=== PATIENT | female | born 1975 ===

== ENCOUNTER 2019-12-18 01:59 | Emergency (ER) | payer BC ==
[2019-12-18] MEDS ORDERED: Ketorolac 30 MG/ML SDV IM ONE (02:36)
--- NOTE | 2019-12-18 02:42 | EDM.PDOC ---
ED HPI GENERAL MEDICAL PROBLEM - General Chief Complaint: Genitourinary Problem Stated Complaint: HAS A UTI, BODY ACHES NOW Time Seen by Provider: 12/18/19 02:40 Source of Information: Reports: Patient History Limitations: Reports: No Limitations - History of Present Illness INITIAL COMMENTS - FREE TEXT/NARRATIVE: currently taking macrobid for UTI then Thursday started having some LBP going up to shoulders. denies straining but was concerned could be kidneys or UTI still. Bilateral Lower Back Pain Score (Numeric/FACES): 8 - Related Data Allergies Allergy/AdvReac Type Severity Reaction Status Date / Time aspirin Allergy Swelling Verified 12/18/19 02:11 Home Meds: Home Meds Ethinyl Estradiol/Drospirenone [[place] 3 MG-0.03 MG] 1 tab PO DAILY 06/21/13 [History] Losartan [Cozaar] 100 mg PO DAILY 12/18/19 [History] hydroCHLOROthiazide [Hydrochlorothiazide] 25 mg PO DAILY 12/18/19 [History] Past Medical History - Past Health History Medical/Surgical History: Denies Medical/Surgical History Cardiovascular History: Reports: Hypertension Social & Family History - Tobacco Use Smoking Status *Q: Never Smoker - Recreational Drug Use Recreational Drug Use: No - Living Situation & Occupation Living situation: Reports: Single, with Family Occupation: Employed ED ROS GENERAL - Review of Systems Review Of Systems: Comprehensive ROS is negative, except as noted in HPI. ED EXAM, RENAL/ - Physical Exam Exam: See Below Exam Limited By: No Limitations General Appearance: Alert, WD/WN, Mild Distress, Other (discomfort). No: Active Emesis Ears: Hearing Grossly Normal Throat/Mouth: Normal Voice, No Airway Compromise Head: Atraumatic Neck: Non-Tender, Full Range of Motion Respiratory/Chest: No Respiratory Distress Cardiovascular: Regular Rate, Rhythm GI/Abdominal: Soft, Non-Tender Back Exam: Other (mild bilateral paravert discomfort without radiculitis) Neurological: Alert, Oriented, Normal Cognition, Normal Gait, No Motor/Sensory Deficits Psychiatric: Normal Affect, Normal Mood Skin Exam: Warm, Dry, Normal Color Lymphatic: No Adenopathy Course - Vital Signs Last Recorded V/S: Last Vital Signs Temp 36.4 C 12/18/19 02:07 Pulse 91 12/18/19 02:07 Resp 14 12/18/19 02:07 BP 169/86 H 12/18/19 02:07 Pulse Ox 95 12/18/19 02:07 - Orders/Labs/Meds Orders: Active Orders 24 hr Category Date Time Status CULTURE URINE [RM] Stat Lab 12/18/19 03:00 Received Fluconazole [Diflucan] Med 12/18/19 03:33 Once 100 mg PO ONETIME ONE Labs: Laboratory Tests 12/18/19 Range/Units 03:00 Urine Color Yellow (YELLOW) Urine Appearance Slightly cloudy (CLEAR) Urine pH 6.5 (5.0-9.0) Ur Specific [place] 1.025 (1.005-1.030) Urine Protein Trace H (NEGATIVE) Urine Glucose (UA) Negative (NEGATIVE) Urine Ketones 15 H (NEGATIVE) Urine Occult Blood Negative (NEGATIVE) Urine Nitrite Positive H (NEGATIVE) Urine Bilirubin Negative (NEGATIVE) Urine Urobilinogen 1.0 (0.2-1.0) mg/dL Ur Leukocyte Esterase Negative (NEGATIVE) U Hyaline Cast (Auto) Few Urine RBC 0-5 /HPF Urine WBC 0-5 (0-5/HPF) /HPF Ur Epithelial Cells Moderate H (NOT SEEN) /HPF Urine Bacteria Moderate H (0-FEW/HPF) /HPF Meds: Medications Discontinued Medications Generic Name Dose Route Start Last Admin Trade Name Freq PRN Reason Stop Dose Admin Ketorolac Tromethamine 30 mg 12/18/19 02:36 12/18/19 02:41 Toradol IM 12/18/19 02:37 30 mg ONETIME ONE Administration - Re-Assessments/Exams Free Text/Narrative Re-Assessment/Exam: 12/18/19 03:33 results discussed with pt who is feeling much better s/p toradol Departure - Departure Time of Disposition: 03:33 Disposition: Home, Self-Care 01 Condition: Good Clinical Impression: UTI, Urinary tract infectious disease, Muscle spasm of back - Discharge Information Instructions: Muscle Cramps and Spasms, [id number] Forms: ED Department Discharge Additional Instructions: 1) try hot shower 2) take tylenol or motrin as needed 3) drink lots of liquids 4) follow up at clinic Sepsis Event Note (ED) - Evaluation Sepsis Screening Result: No Definite Risk - Focused Exam Vital Signs: Vital Signs Temp Pulse Resp BP Pulse Ox 12/18/19 02:07 36.4 C 91 14 169/86 H 95 - My Orders Last 24 Hours: My Active Orders 12/18/19 03:00 CULTURE URINE [RM] Stat 12/18/19 03:33 Fluconazole [Diflucan] 100 mg PO ONETIME ONE - Assessment/Plan Last 24 Hours: My Active Orders 12/18/19 03:00 CULTURE URINE [RM] Stat 12/18/19 03:33 Fluconazole [Diflucan] 100 mg PO ONETIME ONE
[2019-12-18] MEDS ORDERED: Fluconazole 100 MG Tab PO ONE (03:33)
== END 2019-12-18 03:39 | disposition home or self-care (01) ==
LOC: DL.ED 01:59
DX: N39.0 Urinary tract infection, site not specified (principal); M62.830 Muscle spasm of back; I10 Essential (primary) hypertension; Z79.899 Other long term (current) drug therapy; Z88.6 Allergy status to analgesic agent
CPT/HCPCS: 81001; 87086; 87088; 87186; 96372; 99283; A9270; J1885